=== PATIENT | male | born 1960 | race Caucasian/White ===

== ENCOUNTER 2018-01-07 23:03 | Emergency (ER) | payer OTHER ==
[~2018-01-07] VITALS: Ht 172.7 cm; Wt 80.0 kg
[~2018-01-07 23:03] MED LIST: CITA10SO PO; FLUT16H NASAL; TRAZ-144 PO
[2018-01-07] MEDS ORDERED: ALPR0.5T8 PO (23:16)
[2018-01-07] MEDS ORDERED: TAMS0.4C32 PO (23:16)
[2018-01-07] MEDS ORDERED: DIVA250T25 PO (23:16)
[2018-01-07] MEDS ORDERED: RISP1 PO (23:16)
[2018-01-07] MEDS ORDERED: CEPH500 PO (23:16)
[2018-01-08 00:47] LABS: BASOPHILS % (AUTO) 0.3 % (0.0-2.0); EOSINOPHILS % (AUTO) 0.1 % (1.0-6.0); HEMATOCRIT 41.7 % (41-53); HEMOGLOBIN 14.3 g/dL (13.5-17.5); LYMPHOCYTES # (AUTO) 0.7 K/uL (1.0-4.8); LYMPHOCYTES % (AUTO) 5.2 % (22.0-44.0); MEAN CORPUSCULAR HEMOGLOBIN 29.1 pg (26.0-34.0); MEAN CORPUSCULAR HGB CONC 34.2 G/dL (31.0-37.0); MEAN CORPUSCULAR VOLUME 85 fL (80-100); MONOCYTES # (AUTO) 0.5 K/uL (0.1-1.0); MONOCYTES % (AUTO) 3.9 % (2.0-9.0); NEUTROPHILS # (AUTO) 12.1 K/uL (1.8-7.7); PLATELET COUNT (AUTO) 245 K/uL (150-450); RED BLOOD CELL COUNT(AUTO) 4.91 MIL/uL (4.50-5.90); RED CELL DISTRIBUTION WIDTH 13.7 % (11.5-14.5)
[2018-01-08 00:53] LABS: APPEARANCE,URINE CLEAR (CLEAR); BILIRUBIN,URINE NEGATIVE (NEGATIVE); GLUCOSE, URINE (UA) NEGATIVE (NEGATIVE); KETONES,URINE NEGATIVE (NEGATIVE); LEUKOCYTE ESTERASE ,URINE NEGATIVE (NEGATIVE); NITRATE,URINE NEGATIVE (NEGATIVE); OCCULT BLOOD,URINE NEGATIVE (NEGATIVE); PH,URINE 5.5 (5.0-8.0); PROTEIN,URINE NEGATIVE (NEGATIVE)
[2018-01-08 00:56] LABS: AMPHET/METH SCREEN,URINE NEGATIVE (NEGATIVE); BARBITURATE SCREEN, URINE NEGATIVE (NEGATIVE); BENZODIAZEPINES SCREEN,URINE POSITIVE (NEGATIVE); CANNABINOID SCREEN,URINE NEGATIVE (NEGATIVE); COCAINE SCREEN,URINE NEGATIVE (NEGATIVE); METHADONE SCREEN, URINE NEGATIVE (NEGATIVE); OPIATE SCREEN,URINE NEGATIVE (NEGATIVE)
[2018-01-08 00:57] LABS: PHENCYCLIDINE SCREEN,URINE NEGATIVE (NEGATIVE)
[2018-01-08 01:06] LABS: ANION GAP 9 mmol/L (8-16); CARBON DIOXIDE 28 mmol/L (22-29); CHLORIDE 100 mmol/L (98-107); CREATININE 1.16 mg/dL (0.60-1.30); GLOMERULAR FILTR. RATE CALC > 60 mL/min (>60); GLUCOSE,RANDOM 133 mg/dL (70-110); POTASSIUM 3.8 mmol/L (3.5-5.1); SODIUM SERUM 137 mmol/L (136-145); UREA NITROGEN, BLOOD 12 mg/dL (7-18)
[2018-01-08 01:07] LABS: NEUTROPHILS % (AUTO) 90.5 % (40.0-70.0)
[2018-01-08 01:21] LABS: ALANINE AMINOTRANSFERASE 75 U/L (12-78); ALBUMIN 3.4 g/dL (3.4-5.0); ALKALINE PHOSPHATASE 138 U/L (46-116); ASPARTATE AMINOTRANSFERASE 49 U/L (15-37); BILIRUBIN,TOTAL 0.5 mg/dL (0.1-1.0); THYROID STIMULATING HORMONE 3.21 uIU/mL (0.36-3.74); TOTAL PROTEIN, SERUM 7.8 g/dL (6.4-8.2); VALPROIC ACID 29 mcg/mL (50-100)
[2018-01-08] MEDS ORDERED: SODIUM CHLORIDE 0.9% 1,000 ML IV ONE (01:30)
[2018-01-08] MEDS ORDERED: ONDANSETRON HCL 4 MG/2 ML VIAL IVP ONE (01:45)
[2018-01-08 02:22] VITALS: BP 100/66
== END 2018-01-08 02:25 | disposition home or self-care (01) ==
LOC: EMS 23:04
DX: N39.0 Urinary tract infection, site not specified (principal); F41.9 Anxiety disorder, unspecified; F31.9 Bipolar disorder, unspecified; F17.210 Nicotine dependence, cigarettes, uncomplicated
CPT/HCPCS: 36415; 80053; 80164; 80307; 81003; 84443; 84484; 85025; 93005; 96361; 96374; 99285; J2405; J7030

== ENCOUNTER 2018-10-17 17:44 | Inpatient (IN) | payer MEDICARE, OTHER ==
[~2018-10-17] VITALS: Ht 172.7 cm; Wt 92.0 kg
[~2018-10-17 17:44] MED LIST changes: +ALPR0.5T8 PO; +CITA-106 PO; -CITA10SO PO; +DIVA-76 PO; +LEVO500 PO; +RISP1 PO; +TAMS0.4C32 PO; -TRAZ-144 PO; +TRAZ-219 PO
[2018-10-17] MEDS ORDERED: RISP1 PO (18:26)
[2018-10-17] MEDS ORDERED: ANUSHCS PR (18:26)
[2018-10-17] MEDS ORDERED: TAMS0.4C32 PO (18:26)
[2018-10-17] MEDS ORDERED: DIVA-78 PO (18:26)
[2018-10-17] MEDS ORDERED: CITA-106 PO (18:26)
[2018-10-17] MEDS ORDERED: ZOLP10TA7 PO (18:26)
[2018-10-17 20:58] LABS: BASOPHILS % (AUTO) 0.5 % (0.0-2.0); EOSINOPHILS % (AUTO) 0.5 % (1.0-6.0); HEMATOCRIT 42.7 % (41-53); HEMOGLOBIN 14.7 g/dL (13.5-17.5); LYMPHOCYTES # (AUTO) 3.2 K/uL (1.0-4.8); LYMPHOCYTES % (AUTO) 41.3 % (22.0-44.0); MEAN CORPUSCULAR HGB CONC 34.3 G/dL (31.0-37.0); MEAN CORPUSCULAR VOLUME 87 fL (80-100); MONOCYTES # (AUTO) 0.7 K/uL (0.1-1.0); MONOCYTES % (AUTO) 8.7 % (2.0-9.0); NEUTROPHILS # (AUTO) 3.7 K/uL (1.8-7.7); PLATELET COUNT (AUTO) 260 K/uL (150-450); RED BLOOD CELL COUNT(AUTO) 4.89 MIL/uL (4.50-5.90); RED CELL DISTRIBUTION WIDTH 13.7 % (11.5-14.5)
[2018-10-17 21:05] LABS: ANION GAP 7 mmol/L (8-16); CALCIUM, TOTAL 8.4 mg/dL (8.8-10.5); CARBON DIOXIDE 30 mmol/L (22-29); CHLORIDE 101 mmol/L (98-107); CREATININE 0.95 mg/dL (0.60-1.30); GLOMERULAR FILTR. RATE CALC > 60 mL/min (>60); GLUCOSE,RANDOM 92 mg/dL (70-110); SODIUM SERUM 138 mmol/L (136-145); UREA NITROGEN, BLOOD 9 mg/dL (7-18)
[2018-10-17 21:11] LABS: ALANINE AMINOTRANSFERASE 34 U/L (12-78); ALBUMIN 3.9 g/dL (3.4-5.0); ALKALINE PHOSPHATASE 70 U/L (46-116); ASPARTATE AMINOTRANSFERASE 21 U/L (15-37); BILIRUBIN,TOTAL 0.3 mg/dL (0.1-1.0); TOTAL PROTEIN, SERUM 7.7 g/dL (6.4-8.2)
[2018-10-17 21:25] LABS: PROTHROMBIN TIME 10.3 SEC (9.4-11.6)
[2018-10-17] MEDS ORDERED: SODIUM CHLORIDE 0.9% 1,000 ML IV ONE ×2 (22:15→22:45)
[2018-10-17] MEDS ORDERED: PANTOPRAZOLE SODIUM 80 MG in SODIUM CHLORIDE 0.9% 100 ML IV SCH (22:30)
[2018-10-17] MEDS ORDERED: PEG 3350/NA SULF,BICARB,CL/KCL 4000 ML SOLUTION PO ONE (22:30)
[2018-10-17] MEDS ORDERED: 0.9% SODIUM CHLORIDE 10 ML SYRINGE IVP PRN (22:45)
[2018-10-17] MEDS ORDERED: ONDANSETRON HCL 4 MG/2 ML VIAL IVP PRN ×2 (22:45→23:00)
[2018-10-17] MEDS ORDERED: ACETAMINOPHEN 325 MG TABLET PO PRN ×2 (22:45→23:00)
[2018-10-17] MEDS ORDERED: ZOLPIDEM TARTRATE 5 MG TABLET PO PRN (23:00)
[2018-10-17] MEDS ORDERED: BISACODYL 10 MG RECTAL RECTAL SUPPOSITORY PR PRN (23:00)
[2018-10-17] MEDS ORDERED: MORPHINE SULFATE 4 MG/ML SYRINGE IVP PRN (23:00)
[2018-10-17] MEDS ORDERED: ALBUTEROL SULFATE 2.5 MG/0.5 ML NEB SOLUTION NEB PRN (23:00)
[2018-10-17] MEDS ORDERED: IPRATROPIUM BROMIDE 0.5 MG/2.5 ML NEB SOLUTION NEB PRN (23:00)
[2018-10-17] MEDS ORDERED: OxyCODONE HCL/ACETAMINOPHEN 5-325 MG TABLET PO PRN (23:00)
[2018-10-17] MEDS ORDERED: MAGNESIUM HYDROXIDE SUSPENSION 30 ML UDCUP PO PRN (23:00)
[2018-10-17] MEDS ORDERED: HYDROCORTISONE 25 MG RECTAL SUPPOSITORY PR PRN (23:00)
[2018-10-17 23:40] VITALS: BP 139/72
[2018-10-18 04:40] VITALS: BP 111/71
[2018-10-18] MEDS ORDERED: PEG 3350/NA SULF,BICARB,CL/KCL 4000 ML SOLUTION PO ONE (06:00)
[2018-10-18 06:32] LABS: BASOPHILS % (AUTO) 0.7 % (0.0-2.0); HEMATOCRIT 39.1 % (41-53); HEMOGLOBIN 13.2 g/dL (13.5-17.5); LYMPHOCYTES # (AUTO) 2.8 K/uL (1.0-4.8); LYMPHOCYTES % (AUTO) 46.3 % (22.0-44.0); MEAN CORPUSCULAR HEMOGLOBIN 29.9 pg (26.0-34.0); MEAN CORPUSCULAR HGB CONC 33.9 G/dL (31.0-37.0); MEAN CORPUSCULAR VOLUME 88 fL (80-100); MONOCYTES # (AUTO) 0.5 K/uL (0.1-1.0); MONOCYTES % (AUTO) 7.8 % (2.0-9.0); NEUTROPHILS # (AUTO) 2.7 K/uL (1.8-7.7); NEUTROPHILS % (AUTO) 44.2 % (40.0-70.0); PLATELET COUNT (AUTO) 231 K/uL (150-450); RED BLOOD CELL COUNT(AUTO) 4.44 MIL/uL (4.50-5.90); RED CELL DISTRIBUTION WIDTH 13.8 % (11.5-14.5)
[2018-10-18 06:35] LABS: PROTHROMBIN TIME 10.7 SEC (9.4-11.6)
[2018-10-18 06:52] LABS: ALANINE AMINOTRANSFERASE 31 U/L (12-78); ALBUMIN 3.4 g/dL (3.4-5.0); ALKALINE PHOSPHATASE 65 U/L (46-116); ANION GAP 6 mmol/L (8-16); ASPARTATE AMINOTRANSFERASE 17 U/L (15-37); BILIRUBIN,TOTAL 0.4 mg/dL (0.1-1.0); CARBON DIOXIDE 31 mmol/L (22-29); CHLORIDE 105 mmol/L (98-107); CREATININE 0.95 mg/dL (0.60-1.30); GLOMERULAR FILTR. RATE CALC > 60 mL/min (>60); GLUCOSE,RANDOM 97 mg/dL (70-110); PHOSPHORUS 2.9 mg/dL (2.5-4.9); POTASSIUM 4.2 mmol/L (3.5-5.1); SODIUM SERUM 142 mmol/L (136-145); TOTAL PROTEIN, SERUM 6.7 g/dL (6.4-8.2); UREA NITROGEN, BLOOD 8 mg/dL (7-18)
[2018-10-18 07:55] VITALS: BP 148/87
[2018-10-18] MEDS: TAMSULOSIN HCL 0.4 MG CAPSULE PO SCH ×2 (08:25→16:14)
[2018-10-18] MEDS: ALPRAZolam 0.5 MG TABLET PO SCH ×3 (08:25→16:14)
[2018-10-18] MEDS: DIVALPROEX SODIUM 500 MG DR TABLET PO SCH ×2 (08:25→16:15)
[2018-10-18] MEDS: RisperiDONE 1 MG TABLET PO SCH ×2 (08:26→16:14)
[2018-10-18] MEDS: CITALOPRAM HYDROBROMIDE 20 MG TABLET PO SCH ×2 (08:26→16:14)
[2018-10-18 12:06] VITALS: BP 138/74
[2018-10-18] MEDS ORDERED: SODIUM CHLORIDE 0.9% 1,000 ML IV ONE ×2 (13:45→14:00)
[2018-10-18] MEDS ORDERED: METHYLCELLULOSE PO SCH (14:45)
[2018-10-18] MEDS ORDERED: [UNRECOGNIZED DRUG - OTHER] PO SCH (14:45)
[2018-10-18 16:18] VITALS: BP 142/86
[2018-10-18] MEDS ORDERED: PSYL660P17 PO (19:23)
[2018-10-18] MEDS ORDERED: LIDOCAINE/PF 2% 5 ML VIAL IM ONE (19:59)
[2018-10-18] MEDS ORDERED: PROPOFOL 1% 20 ML VIAL IVP ONE (19:59)
[2018-10-18] MEDS ORDERED: PSYLLIUM SEED ORANGE SF 5.8 GM/PACKET PO SCH (21:00)
== END 2018-10-18 20:00 | disposition home or self-care (01) | DRG 394 ==
LOC: EMS 17:46 → 4E 22:30
PROVIDERS: ADMIT Internal Medicine; ATTEND Internal Medicine
PROC: 0DJD8ZZ Inspection of Lower Intestinal Tract, Via Natural or Artificial Opening Endoscopic (ICD-10-PCS; principal; 2018-10-18 15:45)
DX: K64.8 Other hemorrhoids (principal); F31.30 Bipolar disorder, current episode depressed, mild or moderate severity, unspecified; N40.0 Benign prostatic hyperplasia without lower urinary tract symptoms; J44.9 Chronic obstructive pulmonary disease, unspecified; F41.9 Anxiety disorder, unspecified; F17.200 Nicotine dependence, unspecified, uncomplicated; F10.10 Alcohol abuse, uncomplicated
CPT/HCPCS: 82271; 83735; 84100; 86850; 86900; 86901; 87045; 87427; 96365; C9113; J2704; J3490; J7030; J7050

== ENCOUNTER 2019-10-29 10:49 | Emergency (ER) | payer MEDICARE, OTHER ==
[~2019-10-29] VITALS: Ht 172.7 cm; Wt 95.5 kg
[~2019-10-29 10:49] MED LIST changes: +ANUSHCS PR; -DIVA-76 PO; +DIVA-78 PO; -FLUT16H NASAL; -LEVO500 PO; +PSYL660P17 PO; +TAMS-13 PO; -TAMS0.4C32 PO; -TRAZ-219 PO; +ZOLP10TA7 PO
[2019-10-29 11:41] LABS: BASOPHILS % (AUTO) 0.8 % (0.0-2.0); EOSINOPHILS % (AUTO) 0.6 % (1.0-6.0); HEMATOCRIT 42.8 % (41-53); HEMOGLOBIN 14.3 g/dL (13.5-17.5); LYMPHOCYTES # (AUTO) 2.6 K/uL (1.0-4.8); LYMPHOCYTES % (AUTO) 47.7 % (22.0-44.0); MEAN CORPUSCULAR HEMOGLOBIN 29.3 pg (26.0-34.0); MEAN CORPUSCULAR HGB CONC 33.5 G/dL (31.0-37.0); MEAN CORPUSCULAR VOLUME 87 fL (80-100); MONOCYTES # (AUTO) 0.5 K/uL (0.1-1.0); MONOCYTES % (AUTO) 8.5 % (2.0-9.0); NEUTROPHILS # (AUTO) 2.3 K/uL (1.8-7.7); NEUTROPHILS % (AUTO) 42.4 % (40.0-70.0); PLATELET COUNT (AUTO) 253 K/uL (150-450); RED BLOOD CELL COUNT(AUTO) 4.89 MIL/uL (4.50-5.90); RED CELL DISTRIBUTION WIDTH 14.1 % (11.5-14.5)
[2019-10-29 11:58] LABS: ANION GAP 10 mmol/L (8-16); CALCIUM, TOTAL 8.8 mg/dL (8.8-10.5); CARBON DIOXIDE 28 mmol/L (22-29); CHLORIDE 103 mmol/L (98-107); CREATININE 0.87 mg/dL (0.60-1.30); GLOMERULAR FILTR. RATE CALC > 60 mL/min (>60); GLUCOSE,RANDOM 101 mg/dL (70-110); POTASSIUM 4.1 mmol/L (3.5-5.1); SODIUM SERUM 141 mmol/L (136-145); UREA NITROGEN, BLOOD 10 mg/dL (7-18)
[2019-10-29 12:04] VITALS: BP 126/90
[2019-10-29 12:06] LABS: ALANINE AMINOTRANSFERASE 26 U/L (12-78); ALBUMIN 3.5 g/dL (3.4-5.0); ALKALINE PHOSPHATASE 75 U/L (46-116); ASPARTATE AMINOTRANSFERASE 14 U/L (15-37); BILIRUBIN,TOTAL 0.2 mg/dL (0.1-1.0); TOTAL PROTEIN, SERUM 7.5 g/dL (6.4-8.2)
[2019-10-29] MEDS ORDERED: LORazepam 2 MG/ML VIAL IM ONE (12:15)
== END 2019-10-29 13:04 | disposition home or self-care (01) ==
LOC: EMS 10:50
DX: R07.89 Other chest pain (principal); F20.9 Schizophrenia, unspecified; F41.9 Anxiety disorder, unspecified; R06.02 Shortness of breath; F31.9 Bipolar disorder, unspecified; F17.210 Nicotine dependence, cigarettes, uncomplicated
CPT/HCPCS: 36415; 71045; 80053; 84484; 85025; 93005; 96372; 99284; 99406; J2060

== ENCOUNTER 2021-11-02 21:07 | Emergency (ER) | payer MEDICARE, OTHER ==
[~2021-11-02] VITALS: Ht 172.7 cm; Wt 90.0 kg
[~2021-11-02 21:07] MED LIST changes: -CITA-106 PO; +CITA-144 PO; +DIVA-112 PO; -DIVA-78 PO; -RISP1 PO; +RISP1TAB48 PO; -ZOLP10TA7 PO; +ZOLP10TA8 PO
[2021-11-02] MEDS ORDERED: AMOXI1255L PO (21:15)
[2021-11-02] MEDS ORDERED: ACETAMINOPHEN/CODEINE 300-30 MG TABLET PO ONE (22:00)
[2021-11-02] MEDS ORDERED: DiphenhydrAMINE HCL 25 MG CAPSULE PO ONE (22:00)
[2021-11-02 22:19] VITALS: BP 132/78
== END 2021-11-02 22:27 | disposition home or self-care (01) ==
LOC: EMS 21:12
DX: J02.9 Acute pharyngitis, unspecified (principal); F41.9 Anxiety disorder, unspecified; F32.9 Major depressive disorder, single episode, unspecified; F20.9 Schizophrenia, unspecified; F17.210 Nicotine dependence, cigarettes, uncomplicated
CPT/HCPCS: 99283

== ENCOUNTER 2024-10-16 11:40 | Emergency (ER) | payer MEDICARE, OTHER ==
[~2024-10-16] VITALS: Ht 172.7 cm; Wt 98.0 kg
[~2024-10-16 11:40] MED LIST changes: +ALPR-707 PO; -ALPR0.5T8 PO; +AMOXI1255L PO; -TAMS-13 PO; +TAMS0.4C94 PO; +ZOLP-162 PO; -ZOLP10TA8 PO
[2024-10-16 11:47] VITALS: TEMP 97.7
[2024-10-16 12:07] VITALS: PULSE 87; RESP 19; O2SAT 94
[2024-10-16] MEDS: ALBUTEROL SULFATE 2.5 MG/0.5 ML NEB SOLUTION NEB ONE (12:07)
[2024-10-16] MEDS: IPRATROPIUM BROMIDE 0.5 MG/2.5 ML NEB SOLUTION NEB ONE (12:07)
[2024-10-16 12:14] LABS: BASOPHILS % (AUTO) 0.8 % (0.0-2.0); EOSINOPHILS % (AUTO) 1.5 % (1.0-6.0); HEMOGLOBIN 13.6 g/dL (13.5-17.5); LYMPHOCYTES # (AUTO) 3.2 K/uL (1.0-4.8); LYMPHOCYTES % (AUTO) 50.6 % (22.0-44.0); MEAN CORPUSCULAR HEMOGLOBIN 29.4 pg (26.0-34.0); MEAN CORPUSCULAR HGB CONC 33.1 G/dL (31.0-37.0); MEAN CORPUSCULAR VOLUME 89 fL (80-100); MONOCYTES # (AUTO) 0.5 K/uL (0.1-1.0); MONOCYTES % (AUTO) 8.2 % (2.0-9.0); NEUTROPHILS # (AUTO) 2.4 K/uL (1.8-7.7); NEUTROPHILS % (AUTO) 38.9 % (40.0-70.0); PLATELET COUNT (AUTO) 289 K/uL (150-450); RED BLOOD CELL COUNT(AUTO) 4.63 MIL/uL (4.50-5.90); RED CELL DISTRIBUTION WIDTH 13.6 % (11.5-14.5); WHITE BLOOD COUNT (AUTO) 6.3 K/uL (4.5-11.0)
[2024-10-16 12:21] LABS: ANION GAP 7 mmol/L (8-16); CALCIUM, TOTAL 8.8 mg/dL (8.8-10.5); CARBON DIOXIDE 24 mmol/L (22-29); CHLORIDE 101 mmol/L (98-107); CREATININE 0.95 mg/dL (0.60-1.30); GLOMERULAR FILTR. RATE CALC > 60 mL/min (>60); GLUCOSE,RANDOM 141 mg/dL (70-110); POTASSIUM 3.6 mmol/L (3.5-5.1); SODIUM SERUM 132 mmol/L (136-145); UREA NITROGEN, BLOOD 11 mg/dL (7-18)
[2024-10-16 12:22] VITALS: PULSE 82; RESP 19; O2SAT 97
[2024-10-16 12:24] LABS: COVID AG,FIA SOURCE NASAL SWAB
[2024-10-16 12:29] LABS: TROPONIN I-HIGH SENSITIVITY 4 ng/L (<76)
[2024-10-16 12:37] LABS: B-TYPE NATRIURETIC PEPTIDE 12 pg/mL (0-100)
[2024-10-16 13:11] LABS: INFLUENZA TYPE A NEGATIVE FOR TYPE A (NEGATIVE); INFLUENZA TYPE B NEGATIVE FOR TYPE B (NEGATIVE); SARS-COV2 (COVID) ANTIGEN,FIA Negative (Negative)
[2024-10-16] MEDS ORDERED: PRED-554 PO (14:02)
[2024-10-16 14:15] VITALS: BP 138/90; PULSE 78; RESP 18; O2SAT 97
== END 2024-10-16 14:28 | disposition home or self-care (01) ==
LOC: EMS 11:44
DX: J44.9 Chronic obstructive pulmonary disease, unspecified (principal); R06.02 Shortness of breath; F20.9 Schizophrenia, unspecified; F31.9 Bipolar disorder, unspecified; F17.210 Nicotine dependence, cigarettes, uncomplicated; Z87.19 Personal history of other diseases of the digestive system; Z79.899 Other long term (current) drug therapy; Z20.822 Contact with and (suspected) exposure to COVID-19
CPT/HCPCS: 71045; 80048; 83880; 84484; 85025; 87804; 93005; 94640; 99285; 36415-L1; 36415-TC; J7613